=== PATIENT | male | born 1965 | race Caucasian/White ===

== ENCOUNTER 2016-08-21 08:09 | Emergency (ER) | payer MEDICARE, OTHER ==
[~2016-08-21] VITALS: Ht 177.8 cm; Wt 128.2 kg
[~2016-08-21 08:09] MED LIST: 00186-0372-20 IH; ABILIFY 15MG TA15 MG PO; ALDACTONE 25MG25 M1 PO; AMOXICILLIN 8751 TAB PO; ASPIRIN 32325 MG/TAB PO; ASPIRIN 81M81 MG/TA2 PO; BENICAR40 MG PO; BUSPAR; BUSPAR 30MG30 MG/TAB PO; BUSPIRONE PO; CEPHALEXIN500 M1 PO; COGENTIN; DESYREL 100MG100 MG PO; DESYREL 50MG50 MG PO; DIOVAN 160MG160 MG PO; DIOVAN PO; EXCEDRIN 250 MG1 TAB PO; FERROUS SU325 MG/TAB PO; GEODON 20 MG20 MG PO; GEODON 40MG40 MG PO; GEODON80 MG PO; GLUCOSAMINE & C1 CAP PO; HCTZ 25MG25 MG PO; KLONOPIN 0.5MG0.5 MG PO; KLONOPIN 1MG1 MG PO; KLONOPIN PO; KLONOPIN2 MG PO; LEVAQUIN 750MG750 M1 PO; LEVAQUIN 750MG750 MG PO; MELATONIN PO; MELATONIN3 M1 PO; MINIPRESS 1M1 MG/CAP PO; NAPROSYN500 MG PO; NORCO 325 MG-51 TAB PO; NORCO 325 MG-7.1 TAB PO; NORVASC 5MG5 MG/TAB PO; NORVASC10 MG PO; PREDNISONE20 MG PO; PROAIR HFA0.09 MG/AC IH; PROZAC 20MG20 MG PO; PROZAC40 MG PO; ROZEREM 8MG TABL8 MG PO; SAPHRIS2.5 MG SL; SAPHRIS5 MG; SEROQUEL300 MG PO; TRAZADONE HYDR100 MG PO; TRAZODO50 MG PO; TUSS PO; VITAMIN C500 MG PO; VOLTAREN 75 DR75 MG PO; ZITHROMAX TRI-500 MG PO
[2016-08-21 08:10] VITALS: TEMP 97.3
[2016-08-21] MEDS ORDERED: ZOLOFT 25MG25 MG PO (08:15)
[2016-08-21] MEDS ORDERED: CEPHALEXIN500 M1 PO (09:12)
[2016-08-21] MEDS ORDERED: NORCO 325 MG-51 TAB PO (09:12)
[2016-08-21 09:44] VITALS: BP 140/84; PULSE 54
== END 2016-08-21 09:44 | disposition home or self-care (01) ==
LOC: COL.ER 08:09
DX: S80.12XA Contusion of left lower leg, initial encounter (principal); S80.812A Abrasion, left lower leg, initial encounter; W22.03XA Walked into furniture, initial encounter; Y92.009 Unspecified place in unspecified non-institutional (private) residence as the place of occurrence of the external cause; I10 Essential (primary) hypertension; Z23 Encounter for immunization

== ENCOUNTER → 2018-07-01 | Outpatient (CLI) | payer MEDICARE ==
[~2018-07-01] MED LIST changes: +NEURONTIN300 MG/CAP PO; +TOPROL XL 50MG50 MG PO; +ZOLOFT 50MG50 MG PO
== END ==
LOC: COL.RAD 10:54
DX: M54.12 Radiculopathy, cervical region (principal); Z98.890 Other specified postprocedural states

== ENCOUNTER 2018-11-07 14:53 | Emergency (ER) | payer MEDICARE ==
[~2018-11-07] VITALS: Ht 177.8 cm; Wt 111.8 kg
[2018-11-07 15:02] VITALS: TEMP 97
[2018-11-07 15:23] LABS: BASO % 0.1 % (0.0-2.0); GRAN # 14.3 (1.4-6.5); GRAN % 88.3 % (42.2-75.2); HEMOGLOBIN 12.1 g/dl (13.5-18.0); LYMPH # 0.9 (1.2-3.4); LYMPH % 5.4 % (20.0-51.0); MEAN CELL VOLUME 82 fl (80.0-100.0); MEAN CORPUSCULAR HEMOGLOBIN 27 pg (27.0-31.0); MEAN CORPUSCULAR HGB CONC 33 g/dl (33.0-37.0); MEAN PLATELET VOLUME 9.7 fl (7.4-10.4); MONO # 0.9 (0.1-0.6); MONO % 5.8 % (1.7-9.3); PLATELET COUNT 168 K/mm3 (130-400); RED BLOOD COUNT 4.51 M/mm3 (4.20-5.60); REDCELL DISTRIBUTION WIDTH-CV 14.4 % (11.5-14.5)
[2018-11-07 15:32] LABS: HEMATOCRIT 36.9 % (42.0-52.0)
[2018-11-07 15:35] LABS: ALBUMIN 3.7 gm/dL (3.5-5.0); BILIRUBIN,TOTAL 0.6 mg/dL (0.0-1.0); C-REACTIVE PROTEIN 3.9 mg/dL (0.0-0.9); CALCIUM 8.9 mg/dL (8.4-10.2); CREATININE, serum 0.84 (0.66-1.25); POTASSIUM 3.6 mmol/L (3.4-5.0); TOTAL PROTEIN 6.5 gm/dL (6.4-8.2)
[2018-11-07 15:36] LABS: INR 1.1 (0.8-3.0); PROTHROMBIN TIME 12.5 SECONDS (9.7-12.8)
[2018-11-07] MEDS ORDERED: EXCEDRIN1 TAB PO (16:10)
[2018-11-07] MEDS ORDERED: BUSPAR 30MG30 MG/TAB PO (16:12)
[2018-11-07] MEDS ORDERED: COZAAR100 MG PO (16:13)
[2018-11-07] MEDS ORDERED: MELAT3MGTAB (16:13)
[2018-11-07] MEDS ORDERED: KLONOPIN 1MG1 MG PO (16:13)
[2018-11-07] MEDS ORDERED: LAMICTAL 25MG T25 MG PO (16:13)
[2018-11-07] MEDS ORDERED: KLONOPIN2 MG PO (16:13)
[2018-11-07] MEDS ORDERED: NEURONTIN600 MG/TAB PO (16:13)
[2018-11-07] MEDS ORDERED: DESYREL 100MG100 MG PO (16:14)
[2018-11-07] MEDS ORDERED: ZOLOFT 25MG25 MG PO (16:14)
[2018-11-07] MEDS ORDERED: TOPROL XL 50MG50 MG PO (16:14)
[2018-11-07] MEDS ORDERED: VENTOLIN0.09 MG IH (16:15)
[2018-11-07] MEDS ORDERED: DOXYCYCLINE 10100 MG PO (17:06)
[2018-11-07 17:41] VITALS: BP 113/67; PULSE 58
== END 2018-11-07 17:54 | disposition home or self-care (01) ==
LOC: COL.ER 14:53
PROVIDERS: Family Medicine
DX: J18.9 Pneumonia, unspecified organism (principal); R51 Headache; F32.9 Major depressive disorder, single episode, unspecified; F43.10 Post-traumatic stress disorder, unspecified; Z86.73 Personal history of transient ischemic attack (TIA), and cerebral infarction without residual deficits
CPT/HCPCS: J0696; J2270; J2550; J7030

== ENCOUNTER 2018-12-28 13:45 | Emergency (ER) | payer MEDICARE, MEDICAID ==
[~2018-12-28] VITALS: Ht 177.8 cm; Wt 118.2 kg
[~2018-12-28 13:45] MED LIST changes: +COZAAR100 MG PO; +DOXYCYCLINE 10100 MG PO; +EXCEDRIN1 TAB PO; +LAMICTAL 25MG T25 MG PO; +MELAT3MGTAB; +NEURONTIN600 MG/TAB PO; +VENTOLIN0.09 MG IH; +ZOLOFT 25MG25 MG PO
[2018-12-28 14:01] VITALS: TEMP 96.9
[2018-12-28 17:15] LABS: BASO % 0.2 % (0.0-2.0); EOS % 0.4 % (0-4.0); GRAN # 3.8 (1.4-6.5); GRAN % 79.9 % (42.2-75.2); HEMOGLOBIN 13.1 g/dl (13.5-18.0); LYMPH # 0.6 (1.2-3.4); MEAN CELL VOLUME 83 fl (80.0-100.0); MEAN CORPUSCULAR HEMOGLOBIN 27 pg (27.0-31.0); MEAN CORPUSCULAR HGB CONC 32 g/dl (33.0-37.0); MEAN PLATELET VOLUME 9.6 fl (7.4-10.4); MONO # 0.3 (0.1-0.6); MONO % 6.1 % (1.7-9.3); PLATELET COUNT 193 K/mm3 (130-400); RED BLOOD COUNT 4.94 M/mm3 (4.20-5.60); REDCELL DISTRIBUTION WIDTH-CV 14.4 % (11.5-14.5)
[2018-12-28 17:28] LABS: ALANINE AMINOTRANSFERASE 26 U/L (21-72); ALBUMIN 3.9 gm/dL (3.5-5.0); ALKALINE PHOSPHATASE 93 U/L (50-136); ANION GAP 8 mmol/L (7-16); AST,SGOT 24 U/L (15-37); BILIRUBIN,TOTAL 0.4 mg/dL (0.0-1.0); BLOOD UREA NITROGEN 13 mg/dL (9-20); CALCIUM 9.5 mg/dL (8.4-10.2); CARBON DIOXIDE 31 mmol/L (22-30); CHLORIDE 99 mmol/L (98-107); CREATININE, serum 0.69 (0.66-1.25); GLUCOSE 85 mg/dL (74-106); POTASSIUM 4.3 mmol/L (3.4-5.0); SODIUM 137 mmol/L (137-145); TOTAL PROTEIN 6.9 gm/dL (6.4-8.2)
[2018-12-28 17:40] LABS: TROPONIN-I < 0.012 ng/mL (0.000-0.035)
[2018-12-28] MEDS ORDERED: BONINE25 MG PO (19:09)
[2018-12-28 19:19] VITALS: BP 154/82; PULSE 53
== END 2018-12-28 18:34 | disposition home or self-care (01) ==
LOC: COL.ER 13:45
PROVIDERS: Emergency Medicine
DX: R42 Dizziness and giddiness (principal); I10 Essential (primary) hypertension; F20.9 Schizophrenia, unspecified; F32.9 Major depressive disorder, single episode, unspecified; F41.9 Anxiety disorder, unspecified; F43.10 Post-traumatic stress disorder, unspecified; Z79.82 Long term (current) use of aspirin
CPT/HCPCS: J2405

== ENCOUNTER 2019-01-28 12:45 | Outpatient (RCR) | payer MEDICARE ==
[~2019-01-28 12:45] MED LIST changes: +BONINE25 MG PO; -MELAT3MGTAB; +MELAT3MGTAB PO
[2019-02-01] MEDS ORDERED: KLONOPIN2 MG PO ×2 (05:48→05:49)
[2019-02-01] MEDS ORDERED: FLEXERIL 1010 MG/TAB PO (05:50)
[2019-02-01] MEDS ORDERED: ZANAFLEX 4MG TAB4 MG PO (05:51)
[2019-02-01] MEDS ORDERED: NORCO 325 MG-51 TAB PO (05:53)
[2019-02-01] MEDS ORDERED: ULTRAM 50MG TAB50 MG PO (05:58)
[2019-02-03] MEDS ORDERED: AMOXICILLIN 8751 TAB PO (13:45)
== END 2019-02-09 16:01 | disposition home or self-care (01) ==
LOC: MKS.ESL.PT 12:45
DX: M19.041 Primary osteoarthritis, right hand (principal); M19.042 Primary osteoarthritis, left hand

== ENCOUNTER 2019-03-12 13:15 | Outpatient (RCR) | payer MEDICARE, OTHER ==
[~2019-03-12 13:15] MED LIST changes: +FLEXERIL 1010 MG/TAB PO; +ULTRAM 50MG TAB50 MG PO; +ZANAFLEX 4MG TAB4 MG PO
[2019-04-02] MEDS ORDERED: ZOLOFT 25MG25 MG PO (00:18)
[2019-04-02] MEDS ORDERED: XIFAXAN200 MG PO (00:20)
== END 2019-05-10 | disposition home or self-care (01) ==
LOC: MKS.ESL.PT
DX: G56.22 Lesion of ulnar nerve, left upper limb (principal); M19.011 Primary osteoarthritis, right shoulder; M19.012 Primary osteoarthritis, left shoulder; M51.36 Other intervertebral disc degeneration, lumbar region

== ENCOUNTER 2019-04-01 23:03 | Emergency (ER) | payer MEDICARE, OTHER ==
[~2019-04-01] VITALS: Ht 177.8 cm; Wt 78.2 kg
[2019-04-01 23:08] VITALS: TEMP 98.3
[2019-04-01 23:29] LABS: BASO % 0.4 % (0.0-2.0); EOS # 0.1 (0.0-0.7); EOS % 1.8 % (0-4.0); GRAN # 3.1 (1.4-6.5); GRAN % 59.8 % (42.2-75.2); HEMATOCRIT 38.5 % (42.0-52.0); HEMOGLOBIN 12.6 g/dl (13.5-18.0); LYMPH # 1.4 (1.2-3.4); LYMPH % 26.3 % (20.0-51.0); MEAN CELL VOLUME 81 fl (80.0-100.0); MEAN CORPUSCULAR HEMOGLOBIN 27 pg (27.0-31.0); MEAN CORPUSCULAR HGB CONC 33 g/dl (33.0-37.0); MEAN PLATELET VOLUME 9.9 fl (7.4-10.4); MONO # 0.6 (0.1-0.6); MONO % 11.5 % (1.7-9.3); PLATELET COUNT 205 K/mm3 (130-400); RED BLOOD COUNT 4.73 M/mm3 (4.20-5.60); REDCELL DISTRIBUTION WIDTH-CV 13.8 % (11.5-14.5)
[2019-04-01 23:39] LABS: ALANINE AMINOTRANSFERASE 45 U/L (21-72); ALBUMIN 4.1 gm/dL (3.5-5.0); ALKALINE PHOSPHATASE 95 U/L (50-136); ANION GAP 8 mmol/L (7-16); AST,SGOT 45 U/L (15-37); BILIRUBIN,TOTAL 0.4 mg/dL (0.0-1.0); BLOOD UREA NITROGEN 11 mg/dL (9-20); CALCIUM 8.7 mg/dL (8.4-10.2); CARBON DIOXIDE 27 mmol/L (22-30); CHLORIDE 102 mmol/L (98-107); GLUCOSE 101 mg/dL (74-106); LIPASE 100 U/L (23-300); SODIUM 137 mmol/L (137-145)
[2019-04-01 23:51] LABS: TROPONIN-I < 0.012 ng/mL (0.000-0.035)
[2019-04-02] MEDS ORDERED: ZOLOFT 25MG25 MG PO (00:18)
[2019-04-02] MEDS ORDERED: XIFAXAN200 MG PO (00:20)
[2019-04-02 02:50] VITALS: BP 143/69; PULSE 88
== END 2019-04-02 02:52 | disposition home or self-care (01) ==
LOC: COL.ER 23:03
PROVIDERS: Emergency Medicine
DX: G45.9 Transient cerebral ischemic attack, unspecified (principal); I10 Essential (primary) hypertension; F43.10 Post-traumatic stress disorder, unspecified; F20.9 Schizophrenia, unspecified; F32.9 Major depressive disorder, single episode, unspecified; F41.9 Anxiety disorder, unspecified; E66.9 Obesity, unspecified; Z79.82 Long term (current) use of aspirin
CPT/HCPCS: Q9967

== ENCOUNTER → 2019-05-15 | Outpatient (CLI) | payer MEDICARE ==
[~2019-05-15] MED LIST changes: +XIFAXAN200 MG PO
== END ==
LOC: COL.RAD 06:33
DX: R10.11 Right upper quadrant pain (principal)
CPT/HCPCS: A9537; J2805

== ENCOUNTER 2019-09-02 13:36 | Outpatient (RCR) | payer MEDICARE, OTHER | END 2019-10-23 16:09 | disposition home or self-care (01) | LOC: WSC 13:36 | DX: M19.041 Primary osteoarthritis, right hand (principal); M46.92 Unspecified inflammatory spondylopathy, cervical region ==

== ENCOUNTER 2020-03-16 07:56 | Day surgery (SDC) | payer MEDICARE ==
[~2020-03-16] VITALS: Ht 177.8 cm; Wt 133.4 kg
[2020-03-16 10:05] VITALS: BP 132/98; PULSE 57; TEMP 97.4
[2020-03-16 10:20] VITALS: BP 145/95; PULSE 52
[2020-03-16] MEDS ORDERED: FLEXERIL 1010 MG/TAB PO (10:28)
[2020-03-16] MEDS ORDERED: REXULTI4 MG PO (10:29)
[2020-03-16] MEDS ORDERED: HYDRODIURIL50 MG PO (10:30)
[2020-03-16] MEDS ORDERED: BENTYL 20MG20 MG/TAB PO (10:30)
[2020-03-16 10:35] VITALS: BP 157/97; PULSE 50
[2020-03-16] MEDS ORDERED: MELATIN 3 MG-11 TAB PO (10:36)
[2020-03-16] MEDS ORDERED: 00186-0370-20 IH (10:36)
[2020-03-16] MEDS ORDERED: VENTOLIN0.09 MG IH (10:37)
[2020-03-16 11:04] VITALS: BP 127/75; PULSE 58; TEMP 98.3
--- NOTE | 2020-03-16 11:14 | NUR ---
0815 PATIENT AMBULATED INTO [facility] [place] WITH A CANE. GAIT STEADY. WEIGHT OBTAINED. PATIENT AMBULATED TO [facility] – [place]. CONSENT OBTAINED. QUESTIONS INVITED AND ANSWERED. MEDICAL HISTORY AND ALLERGIES REVIEWED WITH PATIENT. 0830 IV STARTED X 1 ATTEMPT TO R FIREARM. TOLERATED WELL. LR STARTED AT TKO. ASSESSMENT COMPLETE. 0900 TO GI SUITE WITH GAMAL KUMAR. 1005 RETURNS TO [facility] VIA CART. PATIENT AMBULATED TO CHAIR FROM HALLWAY WITH SBA. VSS. REPORT AND CARE OF PATIENT RECIEVED FROM GAMAL KUMAR. 1049 DISCHARGE INSTRUCTIONS AND PATIENT INFORMATION GIVEN TO PATIENT BOTH VERBALLY AND IN WRITING. PATIENT VERBALIZED UNDERSTANDING. IV D/C'D. CATH TIP INTACT. TOLERATED WELL. SITE CIVERED WITH COTTON BALL AND WRAPPED IN [place]. 3574 PATIENT D/C'D TO POV WITH FRIENDS VIA WHEELCHAIR.
== END 2020-03-16 10:55 | disposition home or self-care (01) ==
LOC: SDCO 07:56
DX: D12.2 Benign neoplasm of ascending colon (principal); K92.1 Melena; K57.30 Diverticulosis of large intestine without perforation or abscess without bleeding; K62.89 Other specified diseases of anus and rectum; K21.9 Gastro-esophageal reflux disease without esophagitis; I10 Essential (primary) hypertension; E66.9 Obesity, unspecified; K52.3 Indeterminate colitis; J44.9 Chronic obstructive pulmonary disease, unspecified; G47.33 Obstructive sleep apnea (adult) (pediatric); I47.1 Supraventricular tachycardia; M06.9 Rheumatoid arthritis, unspecified; F32.9 Major depressive disorder, single episode, unspecified; F41.9 Anxiety disorder, unspecified; G89.29 Other chronic pain; F20.9 Schizophrenia, unspecified; F43.10 Post-traumatic stress disorder, unspecified; I69.351 Hemiplegia and hemiparesis following cerebral infarction affecting right dominant side; Z88.8 Allergy status to other drugs, medicaments and biological substances; Z20.828 Contact with and (suspected) exposure to other viral communicable diseases; Z68.41 Body mass index [BMI] 40.0-44.9, adult
CPT/HCPCS: J2704; J7120

== ENCOUNTER 2020-06-06 07:22 | Outpatient (CLI) | payer MEDICARE ==
[~2020-06-06] VITALS: Ht 177.8 cm; Wt 139.1 kg
[~2020-06-06 07:22] MED LIST changes: +00186-0370-20 IH; +BENTYL 20MG20 MG/TAB PO; +HYDRODIURIL50 MG PO; +MELATIN 3 MG-11 TAB PO; +REXULTI4 MG PO
[2020-06-06 08:29] VITALS: BP 106/81; PULSE 56; TEMP 97.9
[2020-06-06 09:56] VITALS: BP 131/80; PULSE 57; TEMP 97.9
[2020-06-06] MEDS ORDERED: CEPHALEXIN500 M1 PO (10:53)
--- NOTE | 2020-06-06 10:55 | NUR ---
Discharge instructions given. Transferred to private car by jamee
== END 2020-06-06 10:55 | disposition home or self-care (01) ==
LOC: COL.CAR 07:22
DX: I47.1 Supraventricular tachycardia (principal); I10 Essential (primary) hypertension; D64.9 Anemia, unspecified; K21.9 Gastro-esophageal reflux disease without esophagitis; J69.0 Pneumonitis due to inhalation of food and vomit; M19.90 Unspecified osteoarthritis, unspecified site; F43.10 Post-traumatic stress disorder, unspecified; E66.9 Obesity, unspecified; E22.2 Syndrome of inappropriate secretion of antidiuretic hormone; F20.9 Schizophrenia, unspecified; Z88.8 Allergy status to other drugs, medicaments and biological substances; Z68.41 Body mass index [BMI] 40.0-44.9, adult

== ENCOUNTER 2020-07-29 07:02 | Day surgery (SDC) | payer MEDICARE ==
[~2020-07-29] VITALS: Ht 177.8 cm; Wt 136.6 kg
[~2020-07-29 07:02] MED LIST changes: -LAMICTAL 25MG T25 MG PO; +LAMICTAL XR100 MG PO; -NEURONTIN600 MG/TAB PO
[2020-07-29 08:02] VITALS: BP 143/89; PULSE 60; TEMP 97.9
[2020-07-29] MEDS ORDERED: AMBIEN 10MG10 MG PO (08:18)
[2020-07-29] MEDS ORDERED: NORVASC 5MG5 MG/TAB PO (08:19)
[2020-07-29] MEDS ORDERED: VRAYLAR4.5 MG PO (08:23)
[2020-07-29] MEDS ORDERED: PAMELOR 10MG10 MG PO (08:24)
[2020-07-29] MEDS ORDERED: BENICAR40 MG PO (08:24)
[2020-07-29] MEDS ORDERED: ASPIRIN E.C. 8181 MG PO (08:26)
[2020-07-29] MEDS ORDERED: TOPAMAX 25MG25 M1 PO (08:27)
[2020-07-29] MEDS ORDERED: LASIX 20MG TABL20 MG PO (08:27)
[2020-07-29] MEDS ORDERED: APRESOLINE 25MG25 MG PO (08:27)
[2020-07-29 09:05] VITALS: BP 145/84; PULSE 62
[2020-07-29 09:15] VITALS: BP 143/94; PULSE 60
[2020-07-29 09:30] VITALS: BP 138/85; PULSE 55
[2020-07-29 09:45] VITALS: BP 144/95; PULSE 63; TEMP 97.3
--- NOTE | 2020-07-29 09:45 | NUR ---
PT RETURNED FROM ENDO PROCEDURE ROOM INTO BAY #3. PT A/O, REQUEST GRAPE JUICE AND DENIES WANTING ANYTHING TO EAT. SATS RANGE IN THE 80'S TO THE MID-NINETYS. PT SATES HAVING A LOOP- RECORDER TO MONITOR HID HEART. HE IS ALSO GOT A SLEEP STUDY SCHEDULED TO MONITOR HIS O2 HE SLEEPS. LUNGS CLEAR AND DIMINISHED ON THE RIGHT. CLEAR ON THE LEFT. HR IS REGULAR WITH PERIODS OF IRREGULARITY. BOWEL SOUNDS PRESENT AND ACTIVE. PT DENIES PAIN OR NAUSEA AT THIS TIME. WILL CONT TO MONITOR.
--- NOTE | 2020-07-29 09:53 | NUR ---
PT TOLERATING FLUIDS, CONT TO DENY FOOD. PT DENIES FEELING NAUSEOUS. IV #22 REMOVED FROM RIGHT HAND. TOLERATED WELL.
--- NOTE | 2020-07-29 09:58 | NUR ---
PT DISCHARGE TO FAMILY VEHICLE. PT SIGNED DISCHARGE PAPERS WITHOUT QUESTIONS. PT DC'D TO FAMILY VEHICLE. PT SISTER DRIVING.
== END 2020-07-29 10:15 | disposition home or self-care (01) ==
LOC: SDCO 07:02
DX: K63.5 Polyp of colon (principal); K92.1 Melena; R19.7 Diarrhea, unspecified; K64.1 Second degree hemorrhoids; K21.9 Gastro-esophageal reflux disease without esophagitis; I10 Essential (primary) hypertension; G47.33 Obstructive sleep apnea (adult) (pediatric); F20.9 Schizophrenia, unspecified; J44.9 Chronic obstructive pulmonary disease, unspecified; G89.29 Other chronic pain; M19.90 Unspecified osteoarthritis, unspecified site; F32.9 Major depressive disorder, single episode, unspecified; F41.9 Anxiety disorder, unspecified; F43.10 Post-traumatic stress disorder, unspecified; Z88.8 Allergy status to other drugs, medicaments and biological substances; Z79.899 Other long term (current) drug therapy; Z86.73 Personal history of transient ischemic attack (TIA), and cerebral infarction without residual deficits
CPT/HCPCS: J2704; J7030

== ENCOUNTER 2021-05-16 16:13 | Inpatient (IN) | payer MEDICARE ==
[~2021-05-16] VITALS: Ht 177.8 cm; Wt 130.0 kg
[~2021-05-16 16:13] MED LIST changes: +AMBIEN 10MG10 MG PO; +APRESOLINE 25MG25 MG PO; +ASPIRIN E.C. 8181 MG PO; -LAMICTAL XR100 MG PO; +LAMICTAL150 MG PO; +LASIX 20MG TABL20 MG PO; +PAMELOR 10MG10 MG PO; +TOPAMAX 25MG25 M1 PO; +VRAYLAR6 MG PO
[2021-07-31] MEDS ORDERED: MINOXIDIL 2.5 PO (12:17)
[2021-07-31] MEDS ORDERED: MELATONIN5 M1 PO (12:18)
[2021-07-31] MEDS ORDERED: ELIQUIS 5MG PO (12:20)
[2021-07-31] MEDS ORDERED: DAYVIGO5 MG PO (12:24)
[2021-07-31] MEDS ORDERED: BUMEX2 MG PO (12:27)
[2021-08-02] MEDS ORDERED: BETAPACE 80MG80 MG PO (13:18)
[2021-10-12] MEDS ORDERED: 00186-0370-20 IH (16:07)
[2021-10-12] MEDS ORDERED: PROAIR HFA0.09 MG/AC IH (16:07)
[2021-10-12] MEDS ORDERED: FLEXERIL 1010 MG/TAB PO (16:10)
[2021-10-12] MEDS ORDERED: DECLOMYCIN300 MG PO (16:11)
[2021-10-12] MEDS ORDERED: DAYVIGO5 MG PO (16:11)
[2021-10-12] MEDS ORDERED: NORCO 325 MG-7.1 TAB PO (16:12)
[2021-10-12] MEDS ORDERED: IMODIUM 2MG CAPS2 MG PO (16:16)
[2021-10-12] MEDS ORDERED: ZOLOFT 100MG100 MG PO (16:18)
[2021-10-12] MEDS ORDERED: REXULTI4 MG PO (16:18)
[2021-10-12] MEDS ORDERED: TOPAMAX 25MG25 M1 PO (16:19)
[2021-10-12] MEDS ORDERED: ULTRAM 50MG TAB50 MG PO (16:20)
[2021-10-12] MEDS ORDERED: AMBIEN 10MG10 MG PO (16:21)
[2021-10-12] MEDS ORDERED: VIIBRYD40 MG PO (16:21)
[2021-10-20 11:19] VITALS: BP 103/60; PULSE 59; TEMP 96.3
[2021-10-20] MEDS ORDERED: DAYVIGO5 MG PO (12:37)
[2021-10-20] MEDS ORDERED: MELATIN 3 MG-11 TAB PO (12:40)
[2021-10-20] MEDS ORDERED: VENTOLIN0.09 MG IH (13:01)
[2021-10-20] MEDS ORDERED: VRAYLAR6 MG PO (13:02)
[2021-10-20 16:16] LABS: BASO % 0.3 % (0.0-2.0); EOS # 0.1 K/mm3 (0.0-0.7); EOS % 1.4 % (0.0-4.0); GRAN # 2.3 K/mm3 (1.4-6.5); GRAN % 62.3 % (42.2-75.2); HEMOGLOBIN 11.3 g/dl (13.5-18.0); LYMPH # 0.8 K/mm3 (1.2-3.4); LYMPH % 21.1 % (20.0-51.0); MEAN CELL VOLUME 81 fl (80.0-100.0); MEAN CORPUSCULAR HEMOGLOBIN 27 pg (27-31); MEAN CORPUSCULAR HGB CONC 33 g/dl (33.0-37.0); MONO # 0.5 K/mm3 (0.1-0.6); MONO % 14.6 % (1.7-9.3); PLATELET COUNT 190 K/mm3 (130-400); RED BLOOD COUNT 4.16 M/mm3 (4.20-5.60)
[2021-10-20 16:17] VITALS: BP 98/59; PULSE 51; TEMP 97.4
[2021-10-20 16:19] LABS: HEMATOCRIT 33.8 % (42.0-52.0)
[2021-10-20 16:33] LABS: ALBUMIN 3.5 gm/dL (3.5-5.0); BILIRUBIN,TOTAL 0.6 mg/dL (0.2-1.2); CALCIUM 8.7 mg/dL (8.4-10.2); CREATININE, serum 5.27 mg/dL (0.72-1.25); MAGNESIUM 2.1 mg/dL (1.6-2.6); PHOSPHOROUS 4.5 mg/dL (2.3-4.7); POTASSIUM 3.5 mmol/L (3.5-4.5); TOTAL PROTEIN 6.1 gm/dL (6.2-8.1)
--- NOTE | 2021-10-20 18:11 | NUR ---
Pt arrived to the unit, denies pain or concerns. Questioning POC, updated for him. IV started to LAC. No needs at this time.
[2021-10-20 19:07] LABS: COLLECTION METHOD CLEAN CATCH
[2021-10-20 19:14] LABS: PH 7 (5-8); SQUAMOUS EPITHELIAL None Seen /hpf (0-10); URINE APPEARANCE Clear (CLEAR/HAZY); URINE BACTERIA None Seen /hpf (NONE SEEN); URINE BILIRUBIN Negative (NEGATIVE); URINE BLOOD 1+ (NEGATIVE); URINE COLOR Straw (YELLOW); URINE GLUCOSE 2+ (NEGATIVE); URINE KETONE Negative (NEGATIVE); URINE LEUKOCYTE ESTERASE Negative (NEGATIVE); URINE NITRATE Negative (NEGATIVE); URINE PROTEIN(semi-quant) Negative (NEGATIVE); URINE RBC 0-2 /hpf (0-2); URINE UROBILINOGEN Negative (NEGATIVE); URINE WBC 0-2 /hpf (0-2)
[2021-10-20 19:31] LABS: CREATININE, serum 4.88 mg/dL (0.72-1.25); FRACTIONAL EXCRETION OF NA+ 3.59 %
--- NOTE | 2021-10-20 19:46 | NUR ---
Tx given via mouthpiece, tolerated well.
[2021-10-20 19:56] VITALS: BP 110/59; PULSE 64; TEMP 97.5
[2021-10-20 19:56] LABS: OSMOLALITY-URINE random 221 Osm/kg (50-1200)
--- NOTE | 2021-10-20 21:43 | NUR ---
Patient assessed around 1950. Alert and oriented, and able to make needs known. Denies pain and discomfort. Peripheral IV to left AC. Denies SOB and dyspnea. LS CTA in upper lobes, diminished in lower. HRR-bradycardia. Telemetry in place. BSAx4. Abdomen soft and non-tender. 1+ edema BLE. Voices no questions, needs, or concerns at this time. In bed with call light within reach.
[2021-10-20 23:04] VITALS: BP 81/38; PULSE 50; TEMP 97.6
[2021-10-21] VITALS (7 sets, daily range): BP systolic 92–131; BP diastolic 47–77; PULSE 50–64; TEMP 97.1–98.5
--- NOTE | 2021-10-21 06:04 | NUR ---
Patient denies having pain and discomfort. Continues on IV fluids per orders. Voices no questions, needs, or concerns at this time. In bed with call light within reach.
[2021-10-21 07:02] LABS: BASO % 0.5 % (0.0-2.0); EOS # 0.1 K/mm3 (0.0-0.7); GRAN # 2.5 K/mm3 (1.4-6.5); GRAN % 62.8 % (42.2-75.2); HEMOGLOBIN 10.3 g/dl (13.5-18.0); LYMPH # 0.8 K/mm3 (1.2-3.4); MEAN CELL VOLUME 81 fl (80.0-100.0); MEAN CORPUSCULAR HEMOGLOBIN 27 pg (27-31); MEAN CORPUSCULAR HGB CONC 33 g/dl (33.0-37.0); MEAN PLATELET VOLUME 10.1 fl (7.4-10.4); MONO # 0.6 K/mm3 (0.1-0.6); MONO % 14.5 % (1.7-9.3); PLATELET COUNT 172 K/mm3 (130-400); RED BLOOD COUNT 3.84 M/mm3 (4.20-5.60); REDCELL DISTRIBUTION WIDTH-CV 14.1 % (11.5-14.5)
[2021-10-21 07:08] LABS: HEMATOCRIT 31.2 % (42.0-52.0)
[2021-10-21 07:17] LABS: CALCIUM 7.9 mg/dL (8.4-10.2); CREATININE, serum 3.91 mg/dL (0.72-1.25); POTASSIUM 3.6 mmol/L (3.5-4.5)
--- NOTE | 2021-10-21 09:03 | NUR ---
PT RESTING IN BED. MORNING MEDICATIONS GIVEN. SHIFT ASSESSMENT COMPLETED. PT DENIES ANY PAIN OR NEEDS. WILL CONTINUE TO MONITOR.
--- NOTE | 2021-10-21 11:20 | NUR ---
Follow-up visit; Patient thanked Software Analyst for looking in on him and offering God's blessings and a "get well" message.
--- NOTE | 2021-10-21 16:02 | NUR ---
Structural Worker met with patient, Jack, for intake assessment/discharge planning: Patient informs he feels "kash sluggish," and describes his history of former hospitalizations for various medical issues, stating this hospitalization for "My kidney functioning, to me, was a wake up call." He states he felt frightened at the life threatening nature, reporting relief that his creatinine labs are better today. He states he lives with his spouse, Vesta ([phone]) and a dog and a cat, in their mobile home they own together at [address] in [place], [place]. He states he and his [id number] built a sturdy wooden ramp to the front entry of the home upon a whim, noting he would likely require the accessibility in the future, and he notes he often "thinks ahead." He states he has purchased a used walk-in tub for a reasonable cost but is seeking someone to install; he has not yet searched for a glassworker for a quote/estimate on the service. He notes his current bathtub edge is very high and he has fallen out of the bath 2-3 times before. He states he utilizes a cane at home, but has no other current durable medical equipment and/or oxygen needs at home. He states he is largely independent in his ADLs and IADLs. Dr. Retana is his primary care physician, and he obtains his medications at [facility] without any difficulties. Patient informs he has completed his DPOA-HC appointing his adult son Elias Jacobson ([phone]) as his DPOA-HC; his son lives locally, but is likely at work today. He believes this paperwork is in his medical record. He states, "I'm really depressed because of my health," and informs he is a client at [facility]. He sees Therapist Kelly Viera and Dr. Steven for psychiatry. He states he has a calendar at home with the date of his upcoming therapy appointment. He expresses hope to live, feeling scared at this hospital admission. He has identified protective factors. Patient reports a hope to return to home at discharge; he expresses no further needs/concerns at this time. Patient is open to treatment team recommendations for care at discharge. Social Work to continue to follow. *Discharge to home with spouse pending additional services/needs identified*
--- NOTE | 2021-10-21 19:49 | NUR ---
TX GIVEN VIA MOUTHPIECE, TOLERATED WELL.
--- NOTE | 2021-10-21 22:53 | NUR ---
AAO NO S/S OF SOB OR DISTRESS PATIENT CONTINUES TO HAVE ADEQUATE URINE OUTPUT AND CONTINUES ON NS DIRECTED. NO EDEMA NOTED TO ALL EXTREMTIES. CREATININE COINTNUES TO TREND DOWN CREAT 3.91. PENDING ULTRASOUND ON SATURDAY TO KIDNEYS. CALL LIGHT WITHIN REACH WILL CONTINUE TO MONITOR.
[2021-10-22 03:40] VITALS: BP 117/69; PULSE 58; TEMP 97.7
--- NOTE | 2021-10-22 05:56 | NUR ---
patient slept throughout the night urine output remains adeqaute no changes noted at this time.
[2021-10-22 06:46] LABS: BASO % 0.3 % (0.0-2.0); EOS # 0.1 K/mm3 (0.0-0.7); EOS % 2.6 % (0.0-4.0); GRAN # 1.8 K/mm3 (1.4-6.5); GRAN % 59.1 % (42.2-75.2); HEMOGLOBIN 9.9 g/dl (13.5-18.0); LYMPH # 0.7 K/mm3 (1.2-3.4); LYMPH % 21.8 % (20.0-51.0); MEAN CELL VOLUME 80 fl (80.0-100.0); MEAN CORPUSCULAR HEMOGLOBIN 27 pg (27-31); MEAN CORPUSCULAR HGB CONC 34 g/dl (33.0-37.0); MEAN PLATELET VOLUME 9.5 fl (7.4-10.4); MONO # 0.5 K/mm3 (0.1-0.6); MONO % 15.5 % (1.7-9.3); PLATELET COUNT 145 K/mm3 (130-400); RED BLOOD COUNT 3.64 M/mm3 (4.20-5.60); REDCELL DISTRIBUTION WIDTH-CV 13.9 % (11.5-14.5)
[2021-10-22 07:04] LABS: CALCIUM 7.6 mg/dL (8.4-10.2); CREATININE, serum 2.25 mg/dL (0.72-1.25); POTASSIUM 3.7 mmol/L (3.5-4.5)
[2021-10-22 08:00] VITALS: BP 129/79; PULSE 63; TEMP 97.4
--- NOTE | 2021-10-22 09:37 | NUR ---
Patient sitting up in bed upon entering the room. Denies any concerns at this moment. Independent and A&Ox4. Walked with PT all the way down to the joint unit and back. Call light in reach.
[2021-10-22 11:09] VITALS: BP 148/94; PULSE 62; TEMP 97.4
[2021-10-22] MEDS ORDERED: ELIQUIS 2.5 PO (14:13)
--- NOTE | 2021-10-22 15:49 | NUR ---
Patient discharged home. IV and telemetry removed by this RN. All education and instructions discussed w/ patient. Patient verbalized understanding and signed discharge paperwork. Patient denied any concerns at the time of discharge.
== END 2021-10-22 15:45 | disposition home or self-care (01) | DRG 683 ==
LOC: MEDICAL
PROVIDERS: Family Medicine; Physician Assistant; ADMIT Student in an Organized Health Care Education/Training Program
DX: N17.9 Acute kidney failure, unspecified (principal); E87.1 Hypo-osmolality and hyponatremia; Z68.41 Body mass index [BMI] 40.0-44.9, adult; J44.9 Chronic obstructive pulmonary disease, unspecified; F41.9 Anxiety disorder, unspecified; F32.A Depression, unspecified; F25.9 Schizoaffective disorder, unspecified; K21.9 Gastro-esophageal reflux disease without esophagitis; G47.30 Sleep apnea, unspecified; I48.0 Paroxysmal atrial fibrillation; N18.9 Chronic kidney disease, unspecified; I12.9 Hypertensive chronic kidney disease with stage 1 through stage 4 chronic kidney disease, or unspecified chronic kidney disease; E66.9 Obesity, unspecified; E79.0 Hyperuricemia without signs of inflammatory arthritis and tophaceous disease; E86.1 Hypovolemia; Z86.73 Personal history of transient ischemic attack (TIA), and cerebral infarction without residual deficits; Z79.82 Long term (current) use of aspirin
CPT/HCPCS: 99222-AI; 99232-AI; 99239; J7030

== ENCOUNTER 2021-07-31 08:11 | Inpatient (IN) | payer MEDICARE ==
[~2021-07-31] VITALS: Ht 177.8 cm; Wt 140.8 kg
[2021-07-31 08:53] VITALS: BP 127/62; PULSE 93; TEMP 98.4
[2021-07-31 09:02] LABS: BASO % 0.6 % (0.0-2.0); EOS # 0.1 K/mm3 (0.0-0.7); EOS % 1.7 % (0.0-4.0); GRAN # 2.5 K/mm3 (1.4-6.5); GRAN % 72.4 % (42.2-75.2); LYMPH # 0.5 K/mm3 (1.2-3.4); LYMPH % 15.4 % (20.0-51.0); MEAN CELL VOLUME 80 fl (80.0-100.0); MEAN CORPUSCULAR HEMOGLOBIN 27 pg (27-31); MEAN CORPUSCULAR HGB CONC 33 g/dl (33.0-37.0); MEAN PLATELET VOLUME 9.4 fl (7.4-10.4); MONO # 0.3 K/mm3 (0.1-0.6); MONO % 9.6 % (1.7-9.3); PLATELET COUNT 174 K/mm3 (130-400); RED BLOOD COUNT 4.48 M/mm3 (4.20-5.60); REDCELL DISTRIBUTION WIDTH-CV 13.5 % (11.5-14.5)
[2021-07-31 09:08] LABS: HEMATOCRIT 35.9 % (42.0-52.0)
[2021-07-31 09:09] LABS: INR 1.1 (0.8-3.0); PROTHROMBIN TIME 12.3 SECONDS (9.7-12.8)
--- NOTE | 2021-07-31 09:57 | NUR ---
PT ADMITTIED TO THE UNIT. ADMISSION INTAKE AND ASSESSMENT COMPLETED. DENIES ANY PAIN OR CONCERNS. FIRST DOSE OF SOTALOL GIVEN. EDUCATED PT ON MEDICATION. ORIENTED TO ROOM. CONTINUING TO MONITOR.
[2021-07-31 11:41] VITALS: BP 121/7; PULSE 57; TEMP 97.5
[2021-07-31] MEDS ORDERED: MINOXIDIL 2.5 PO (12:17)
[2021-07-31] MEDS ORDERED: MELATONIN5 M1 PO (12:18)
[2021-07-31] MEDS ORDERED: ELIQUIS 5MG PO (12:20)
[2021-07-31] MEDS ORDERED: DAYVIGO5 MG PO (12:24)
[2021-07-31] MEDS ORDERED: BUMEX2 MG PO (12:27)
--- NOTE | 2021-07-31 14:48 | NUR ---
drop worker met with patient to discuss discharge plan. Patient lives at home with his Vesta ([phone]) in [place]. Patient states that he is independent with his activities of daily living. Patient uses a cane prn to assist with mobility and does not utilize any oxygen at home. PCP is Dr. Retana and he utilizes [facility] for medications with no cost difficulty. Patient reports that he does have a DPOA-HC established and his agent is his son Elias ([phone]). Patient is planning on returning home with no concerns. DIscharge plan: Home with spouse.
[2021-07-31 16:53] VITALS: BP 133/77; PULSE 66; TEMP 97.7
[2021-07-31 21:16] VITALS: BP 155/82; PULSE 72; TEMP 97.6
[2021-08-01 00:42] VITALS: BP 125/62; PULSE 64; TEMP 98
[2021-08-01 04:36] VITALS: BP 128/63; PULSE 63; TEMP 97.8
--- NOTE | 2021-08-01 06:15 | NUR ---
Rested well this shift. Denied pain/nausea/shortness of breath. SR on TELE. Denies current needs. Call light in reach. Will monitor.
[2021-08-01 06:47] LABS: BASO % 0.7 % (0.0-2.0); EOS # 0.1 K/mm3 (0.0-0.7); EOS % 2.8 % (0.0-4.0); GRAN # 1.6 K/mm3 (1.4-6.5); GRAN % 57.2 % (42.2-75.2); HEMOGLOBIN 11.5 g/dl (13.5-18.0); LYMPH # 0.7 K/mm3 (1.2-3.4); LYMPH % 23.7 % (20.0-51.0); MEAN CELL VOLUME 81 fl (80.0-100.0); MEAN CORPUSCULAR HEMOGLOBIN 27 pg (27-31); MEAN CORPUSCULAR HGB CONC 33 g/dl (33.0-37.0); MEAN PLATELET VOLUME 9.6 fl (7.4-10.4); MONO # 0.4 K/mm3 (0.1-0.6); MONO % 15.3 % (1.7-9.3); PLATELET COUNT 185 K/mm3 (130-400); RED BLOOD COUNT 4.29 M/mm3 (4.20-5.60); REDCELL DISTRIBUTION WIDTH-CV 13.9 % (11.5-14.5)
[2021-08-01 06:55] LABS: INR 1.3 (0.8-3.0); PROTHROMBIN TIME 14.3 SECONDS (9.7-12.8)
[2021-08-01 06:58] LABS: HEMATOCRIT 34.7 % (42.0-52.0)
[2021-08-01 07:10] LABS: CALCIUM 9.2 mg/dL (8.4-10.2); CREATININE, serum 0.93 mg/dL (0.72-1.25); MAGNESIUM 2.1 mg/dL (1.6-2.6); POTASSIUM 4.3 mmol/L (3.5-4.5)
[2021-08-01 07:50] VITALS: BP 137/71; PULSE 68; TEMP 97.7
--- NOTE | 2021-08-01 08:38 | NUR ---
PT SITTING UP ON EDGE OF BED. MORNING MEDICATIONS GIVEN. SHIFT ASSESSMENT COMPLETED. DENIED ANY PAIN. PT REPORTS ONE EPISODE THIS MORNING OF SOB, BELIEVES IT COULD HAVE BEEN DUE TO ANXIETY. TELE READS NSR. WILL CONTINUE TO MONITOR.
--- NOTE | 2021-08-01 11:34 | NUR ---
First visit from the usability engineer. No needs right now.
[2021-08-01 12:24] VITALS: BP 116/70; PULSE 60; TEMP 98
[2021-08-01 16:17] VITALS: BP 154/91; PULSE 64; TEMP 97.9
[2021-08-01 20:59] VITALS: BP 163/90; PULSE 65; TEMP 97.6
--- NOTE | 2021-08-01 21:20 | NUR ---
Initial shift assessment, Denies pain, no CP/SOA VSS, Tele onSR, Up to bathroom, steady on feet, pleasant, oriented x4, no requests- hopes to go home tomorrw.
[2021-08-02 00:20] VITALS: BP 124/66; PULSE 61; TEMP 97.9
[2021-08-02 04:05] VITALS: BP 119/74; PULSE 66; TEMP 97.8
--- NOTE | 2021-08-02 05:21 | NUR ---
Quiet night- no requests, has been sleeping. VSS, no chest pain/SOA- tele on
[2021-08-02 06:45] LABS: BASO % 0.6 % (0.0-2.0); EOS # 0.1 K/mm3 (0.0-0.7); EOS % 1.6 % (0.0-4.0); GRAN % 63.6 % (42.2-75.2); HEMOGLOBIN 11.8 g/dl (13.5-18.0); LYMPH # 0.6 K/mm3 (1.2-3.4); MEAN CELL VOLUME 80 fl (80.0-100.0); MEAN CORPUSCULAR HEMOGLOBIN 27 pg (27-31); MEAN CORPUSCULAR HGB CONC 34 g/dl (33.0-37.0); MEAN PLATELET VOLUME 9.2 fl (7.4-10.4); MONO # 0.5 K/mm3 (0.1-0.6); MONO % 14.9 % (1.7-9.3); PLATELET COUNT 171 K/mm3 (130-400); RED BLOOD COUNT 4.36 M/mm3 (4.20-5.60); REDCELL DISTRIBUTION WIDTH-CV 13.3 % (11.5-14.5)
[2021-08-02 06:49] LABS: HEMATOCRIT 34.9 % (42.0-52.0)
[2021-08-02 07:03] LABS: INR 1.4 (0.8-3.0); PROTHROMBIN TIME 15.2 SECONDS (9.7-12.8)
[2021-08-02 07:11] LABS: CALCIUM 9.1 mg/dL (8.4-10.2); POTASSIUM 4.2 mmol/L (3.5-4.5)
[2021-08-02 08:29] VITALS: BP 160/85; PULSE 65; TEMP 98.1
--- NOTE | 2021-08-02 09:08 | NUR ---
PT SITTING UP ON EDGE OF BED. MORNING MEDICATIONS GIVEN. SHIFT ASSESSMENT COMPLETED. PT DENIES ANY PAIN OR NEEDS. UPDATE PT ON PLAN OF CARE. WILL CONTINUE TO MONITOR. ANXIOUS TO GO HOME.
--- NOTE | 2021-08-02 10:30 | NUR ---
Initial visit; Patient thanked Automation Control Integrator for stopping to say "Hi" and wish him well.
[2021-08-02 11:31] VITALS: BP 152/78; PULSE 60; TEMP 97.9
[2021-08-02] MEDS ORDERED: BETAPACE 80MG80 MG PO (13:18)
--- NOTE | 2021-08-02 14:40 | NUR ---
DISCHARGE INSTRUCTIONS GIVEN. IV D/C. WALKED PT DOWN TO VEHICLE.
== END 2021-08-02 14:41 | disposition home or self-care (01) | DRG 310 ==
LOC: MEDICAL 08:11
PROVIDERS: ADMIT Internal Medicine Cardiovascular Disease
DX: I48.0 Paroxysmal atrial fibrillation (principal); I47.1 Supraventricular tachycardia; I87.2 Venous insufficiency (chronic) (peripheral); I10 Essential (primary) hypertension; J45.909 Unspecified asthma, uncomplicated; K44.9 Diaphragmatic hernia without obstruction or gangrene; M19.90 Unspecified osteoarthritis, unspecified site; Z79.82 Long term (current) use of aspirin; Z86.73 Personal history of transient ischemic attack (TIA), and cerebral infarction without residual deficits

== ENCOUNTER 2021-10-12 11:53 | Outpatient (CLI) | payer MEDICARE ==
[2021-10-12] VITALS (7 sets, daily range): BP systolic 101–118; BP diastolic 63–76; PULSE 49–60; TEMP 97.9
[~2021-10-12 11:53] MED LIST changes: +BETAPACE 80MG80 MG PO; +BUMEX2 MG PO; +DAYVIGO5 MG PO; +ELIQUIS 5MG PO; +MELATONIN5 M1 PO; +MINOXIDIL 2.5 PO
--- NOTE | 2021-10-12 12:59 | NUR ---
Message left for return call from Dr Retana's office by this nurse and Pharmacist Cynthia to clarify orders for hyertonic saline. Awaiting return call. Pt updated and aware of need to clarify orders.
[2021-10-12] MEDS ORDERED: 00186-0370-20 IH (16:07)
[2021-10-12] MEDS ORDERED: PROAIR HFA0.09 MG/AC IH (16:07)
[2021-10-12] MEDS ORDERED: FLEXERIL 1010 MG/TAB PO (16:10)
[2021-10-12] MEDS ORDERED: DECLOMYCIN300 MG PO (16:11)
[2021-10-12] MEDS ORDERED: DAYVIGO5 MG PO (16:11)
[2021-10-12] MEDS ORDERED: NORCO 325 MG-7.1 TAB PO (16:12)
[2021-10-12] MEDS ORDERED: IMODIUM 2MG CAPS2 MG PO (16:16)
[2021-10-12] MEDS ORDERED: ZOLOFT 100MG100 MG PO (16:18)
[2021-10-12] MEDS ORDERED: REXULTI4 MG PO (16:18)
[2021-10-12] MEDS ORDERED: TOPAMAX 25MG25 M1 PO (16:19)
[2021-10-12] MEDS ORDERED: ULTRAM 50MG TAB50 MG PO (16:20)
[2021-10-12] MEDS ORDERED: VIIBRYD40 MG PO (16:21)
[2021-10-12] MEDS ORDERED: AMBIEN 10MG10 MG PO (16:21)
--- NOTE | 2021-10-12 17:28 | NUR ---
Pt tolerated IV infusion without issue. Lab notified of need for sodium level draw. Pt eating dinner tray. Denies further needs at this time. Call light in reach. GAMAL Rey will assume cares and call lab results to Dr Retana.
--- NOTE | 2021-10-12 18:00 | NUR ---
Pt ready to go home. I reported pt's sodium level to Dr. Retana, and was given the okay to let pt go home. Pt remains alert and oriented, pwd with reg and unlabored respirations. Pt is ambulatory to exit. Noreen YEUNG walked pt out to his car. Pt verbalized understanding of his plan of care including follow up with Dr. Retana on Saturday.
== END 2021-10-12 18:51 | disposition home or self-care (01) ==
LOC: EUO 11:53
DX: E87.1 Hypo-osmolality and hyponatremia (principal)
CPT/HCPCS: A4217; J2597; J7131

== ENCOUNTER 2021-12-15 03:40 | Emergency (ER) | payer MEDICARE ==
[~2021-12-15] VITALS: Ht 177.8 cm; Wt 122.7 kg
[2021-12-15 03:40] VITALS: TEMP 97.9
[~2021-12-15 03:40] MED LIST changes: +DECLOMYCIN300 MG PO; +ELIQUIS 2.5 PO; +IMODIUM 2MG CAPS2 MG PO; +VIIBRYD40 MG PO; +ZOLOFT 100MG100 MG PO
[2021-12-15 04:02] LABS: BASO % 0.7 % (0.0-2.0); EOS # 0.1 K/mm3 (0.0-0.7); EOS % 2.9 % (0.0-4.0); GRAN # 3.1 K/mm3 (1.4-6.5); HEMATOCRIT 37.3 % (42.0-52.0); HEMOGLOBIN 12.4 g/dl (13.5-18.0); LYMPH # 0.8 K/mm3 (1.2-3.4); LYMPH % 16.7 % (20.0-51.0); MEAN CELL VOLUME 82 fl (80.0-100.0); MEAN CORPUSCULAR HEMOGLOBIN 27 pg (27-31); MEAN CORPUSCULAR HGB CONC 33 g/dl (33.0-37.0); MEAN PLATELET VOLUME 9.7 fl (7.4-10.4); MONO # 0.5 K/mm3 (0.1-0.6); MONO % 10.5 % (1.7-9.3); PLATELET COUNT 195 K/mm3 (130-400); RED BLOOD COUNT 4.54 M/mm3 (4.20-5.60); REDCELL DISTRIBUTION WIDTH-CV 14.1 % (11.5-14.5)
[2021-12-15 04:28] LABS: ALBUMIN 3.7 gm/dL (3.5-5.0); BILIRUBIN,TOTAL 0.6 mg/dL (0.2-1.2); CALCIUM 9.1 mg/dL (8.4-10.2); CREATININE, serum 0.9 mg/dL (0.72-1.25); POTASSIUM 4.1 mmol/L (3.5-4.5); TOTAL PROTEIN 6.8 gm/dL (6.2-8.1)
[2021-12-15 04:41] LABS: COLLECTION METHOD CLEAN CATCH
[2021-12-15 04:48] LABS: PH 7 (5-8); SQUAMOUS EPITHELIAL None Seen /hpf (0-10); URINE APPEARANCE Clear (CLEAR/HAZY); URINE BACTERIA None Seen /hpf (NONE SEEN); URINE BILIRUBIN Negative (NEGATIVE); URINE BLOOD Negative (NEGATIVE); URINE COLOR Colorless (YELLOW); URINE GLUCOSE Negative (NEGATIVE); URINE KETONE Negative (NEGATIVE); URINE LEUKOCYTE ESTERASE Negative (NEGATIVE); URINE NITRATE Negative (NEGATIVE); URINE PROTEIN(semi-quant) Negative (NEGATIVE); URINE RBC None Seen /hpf (0-2); URINE UROBILINOGEN Negative (NEGATIVE)
[2021-12-15 04:56] LABS: TROPONIN-I 0.011 ng/mL (0.00-0.033)
[2021-12-15 05:21] VITALS: BP 153/78; PULSE 76
== END 2021-12-15 05:21 | disposition home or self-care (01) ==
LOC: COL.ER 03:40
PROVIDERS: Emergency Medicine Emergency Medical Services
DX: R07.89 Other chest pain (principal); D64.9 Anemia, unspecified; R00.1 Bradycardia, unspecified